=== PATIENT | female | born 1975 | race Caucasian/White ===

== ENCOUNTER 2017-01-11 10:00 | Emergency (ER) | payer OTHER ==
[~2017-01-11] VITALS: Ht 149.9 cm; Wt 59.0 kg
--- NOTE | 2017-01-11 10:00 | NUR ---
PT AMBULATORY TO ER BED 01, C/O N/V/D GENERALIZED WEAKNESS X 3 DAYS. STATES WORST TODAY. PT IS [employer]. TACHY OTHERWISE STABLE VITALS. AWAITING MD RHOADES.
[2017-01-11] MEDS ORDERED: ONDANSETRON HCL/PF 4 MG/2 ML VIAL ONE (10:16)
[2017-01-11] MEDS ORDERED: KETOROLAC TROMETHAMINE INJ 30 MG/ML VIAL ONE (10:16)
[2017-01-11] MEDS ORDERED: DICYCLOMINE HCL INJ 20 MG/2 ML AMPUL IM ONE ×2 (10:16→10:30)
--- NOTE | 2017-01-11 10:24 | NUR ---
DR SHEPPARD AT BEDSIDE FOR EVAL.
[2017-01-11] MEDS ORDERED: ONDANSETRON HCL/PF 4 MG/2 ML VIAL IVP ONE (10:30)
[2017-01-11] MEDS ORDERED: KETOROLAC TROMETHAMINE INJ 30 MG/ML VIAL IV ONE (10:30)
[2017-01-11] MEDS ORDERED: IV NS 0.9% 1,000 ML BAG IV ONE (10:30)
[2017-01-11] MEDS ORDERED: diphenhydrAMINE HCL 50 MG/ML VIAL ONE (11:20)
[2017-01-11] MEDS ORDERED: METOCLOPRAMIDE HCL 10 MG/2 ML VIAL ONE (11:20)
[2017-01-11] MEDS ORDERED: METOCLOPRAMIDE HCL 10 MG/2 ML VIAL IV ONE (11:30)
[2017-01-11] MEDS ORDERED: diphenhydrAMINE HCL 50 MG/ML VIAL IV ONE (11:30)
--- NOTE | 2017-01-11 12:28 | NUR ---
IV removed. Catheter intact and site benign. Pressure and 4x4 applied to site. No bleeding noted.
--- NOTE | 2017-01-11 12:28 | NUR ---
Patient discharged to home in stable condition. Written and verbal after care instructions given. Patient verbalizes understanding of instruction.
[2017-01-11 12:34] VITALS: BP 128/75
== END 2017-01-11 12:34 | disposition home or self-care (01) ==
LOC: ER 10:02
DX: K52.9 Noninfective gastroenteritis and colitis, unspecified (principal); R51 Headache; B34.9 Viral infection, unspecified; R11.2 Nausea with vomiting, unspecified; Z88.0 Allergy status to penicillin
CPT/HCPCS: 84703; 96361; 96372; 96374; 96375; 99284; A4606; J0500; J1200; J1885; J2405; J2765; Z7610

== ENCOUNTER 2018-06-05 20:46 | Emergency (ER) | payer MEDICAID, OTHER ==
[~2018-06-05] VITALS: Ht 149.9 cm; Wt 59.0 kg
[2018-06-05 20:49] VITALS: BP 147/82
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
[2018-06-05] MEDS ORDERED: IBUPROFEN 600 MG TABLET PO ONE ×2 (21:10→21:30)
--- NOTE | 2018-06-05 21:13 | NUR ---
XRAY AT BEDSIDE
--- NOTE | 2018-06-05 21:59 | NUR ---
[employer] AT BEDSIDE TO TALK TO PT
--- NOTE | 2018-06-05 22:50 | NUR ---
Patient discharged to home in stable condition. Written and verbal after care instructions given. Patient verbalizes understanding of instruction.
== END 2018-06-05 22:52 | disposition home or self-care (01) ==
LOC: ER 20:47
DX: S50.11XA Contusion of right forearm, initial encounter (principal); Z88.0 Allergy status to penicillin; V49.49XA Driver injured in collision with other motor vehicles in traffic accident, initial encounter; Y93.89 Activity, other specified; Y92.410 Unspecified street and highway as the place of occurrence of the external cause; Y99.8 Other external cause status
CPT/HCPCS: 73090-TC; 73130-TC